=== PATIENT | female | born 1980 | race Two or more races ===

== ENCOUNTER 2017-11-19 15:50 | Emergency (ER) | payer MEDICAID ==
[~2017-11-19] VITALS: Ht 157.5 cm; Wt 8.0 kg
[~2017-11-19 15:50] MED LIST: ALBU8HFA PO; BUPR150T6 PO; CYCL-1 PO; DIPH25TA89 PO; NO HOME MEDS; OMEP20TA23 PO; PRED20TA PO; TOP25T PO
[2017-11-19 15:52] VITALS: BP 126/96
[2017-11-19] MEDS ORDERED: mag hydrox/Alum hydrox/simeth 30ml oral suspension PO ONE (15:55)
== END 2017-11-19 16:59 | disposition home or self-care (01) ==
LOC: ER 15:51
DX: T59.91XA Toxic effect of unspecified gases, fumes and vapors, accidental (unintentional), initial encounter (principal); J45.909 Unspecified asthma, uncomplicated; K21.9 Gastro-esophageal reflux disease without esophagitis; Z90.49 Acquired absence of other specified parts of digestive tract; Z87.891 Personal history of nicotine dependence; Z88.5 Allergy status to narcotic agent; Z88.8 Allergy status to other drugs, medicaments and biological substances; Z79.899 Other long term (current) drug therapy; Y92.89 Other specified places as the place of occurrence of the external cause
CPT/HCPCS: 99283

== ENCOUNTER 2021-12-28 12:16 | Emergency (ER) | payer MEDICARE, MEDICAID ==
[~2021-12-28] VITALS: Ht 157.5 cm; Wt 86.4 kg
[~2021-12-28 12:16] MED LIST changes: +BUPR150T22 PO; -BUPR150T6 PO
[2021-12-28 12:17] VITALS: BP 124/79
[2021-12-28] MEDS ORDERED: ibuprofen tablet 400 MG TABLET PO ONE (14:45)
== END 2021-12-28 15:01 | disposition left against medical advice (07) ==
LOC: ER 12:16
DX: L03.012 Cellulitis of left finger (principal); R19.7 Diarrhea, unspecified; J45.909 Unspecified asthma, uncomplicated; K21.9 Gastro-esophageal reflux disease without esophagitis; Z90.49 Acquired absence of other specified parts of digestive tract; Z98.51 Tubal ligation status; Z72.89 Other problems related to lifestyle; Z88.6 Allergy status to analgesic agent; Z88.8 Allergy status to other drugs, medicaments and biological substances; Z79.899 Other long term (current) drug therapy
CPT/HCPCS: 99281; 99282

== ENCOUNTER 2022-09-22 08:32 | Day surgery (SDC) | payer MEDICARE, MEDICAID ==
[2022-09-16 13:56] LABS: BASOPHILS % (AUTO) 0.3 % (0-1); EOSINOPHILS # (AUTO) 0.3 X10'3 (0-0.9); EOSINOPHILS % (AUTO) 4.4 % (0-6); LYMPHOCYTES # (AUTO) 2.4 X10'3 (1.1-4.8); LYMPHOCYTES % (AUTO) 31.9 % (21-51); MEAN CORPUSCULAR HEMOGLOBIN 32.4 PG (27.0-31.0); MEAN CORPUSCULAR HGB CONC 34.2 g/dL (33.0-36.5); MEAN CORPUSCULAR VOLUME 94.6 FL (78-98); MEAN PLATELET VOLUME 8.1 FL (7.4-10.4); MONOCYTES # (AUTO) 0.9 X10'3 (0-0.9); MONOCYTES % (AUTO) 12.4 % (2-12); NEUTROPHILS # (AUTO) 3.9 X10'3 (1.8-7.7); PRE OP PLATELET COUNT 215 X10'3 (140-440); RED BLOOD COUNT 4.33 X10'6 (4.20-5.60); RED CELL DISTRIBUTION WIDTH 13.4 % (11.5-14.5)
[2022-09-16 14:02] LABS: ALBUMIN 3.9 G/DL (3.4-5.0); ALBUMIN/GLOBULIN RATIO 1.3 (1.1-1.5); ALKALINE PHOSPHATASE 66 IU/L (46-116); BLOOD UREA NITROGEN 13 MG/DL (7-18); BUN/CREATININE RATIO 17.1 (6.6-38.0); CALCIUM 8.6 MG/DL (8.5-10.1); CHLORIDE 105 MMOL/L (99-107); CREATININE 0.76 MG/DL (0.40-0.90); PRE OP ALT 26 U/L (30-65); PRE OP ANION GAP 6 (8-16); PRE OP AST 20 U/L (10-37); PRE OP BILIRUB, TOTAL 0.1 MG/DL (0.0-1.0); PRE OP GLUCOSE 91 MG/DL (70-104); PRE OP SODIUM 140 MMOL/L (135-145); TOTAL CARBON DIOXIDE 28.7 MMOL/L (24-32); TOTAL PROTEIN 6.8 G/DL (6.4-8.2); eGFR 85 ML/MIN
[2022-09-16 14:57] LABS: CLARITY,URINE CLOUDY (Clear); COLOR,URINE YELLOW (Yellow); GLUCOSE, URINE NEGATIVE (Neg); KETONES,URINE NEGATIVE (Neg); LEUKOCYTE ESTERASE ,URINE NEGATIVE (Neg); NITRITES, URINE NEGATIVE (Neg); OCCULT BLOOD,URINE NEGATIVE (Neg); PROTEIN,URINE NEGATIVE (Neg); UROBILINOGEN,URINE 0.2 E.U/dL (0.2-1.0)
[2022-09-16 15:28] LABS: UA COLLECTION TYPE CLN CATCH MIDSTREAM
[2022-09-16 15:30] LABS: BACTERIA,URINE FEW /HPF (Neg); RBC,URINE 0-2 /HPF (0-2); WBC,URINE 0-4 /HPF (0-4)
[2022-09-16 15:31] LABS: MUCUS STRANDS MODERATE /LPF (Neg); SQUAMOUS EPITHELIAL CELL,UR MODERATE /LPF (FEW)
[2022-09-22] VITALS (9 sets, daily range): BP systolic 94–126; BP diastolic 58–89
[~2022-09-22] VITALS: Ht 157.5 cm; Wt 71.3 kg
[~2022-09-22 08:32] MED LIST changes: -ALBU8HFA PO; -BUPR150T22 PO; -CYCL-1 PO; -DIPH25TA89 PO; -OMEP20TA23 PO; -PRED20TA PO; -TOP25T PO; +ceFAZolin inj. 2,000 MG in dextrose 5%-water 100 ML IV ONE; +famotidine 20mg tablet PO ONE; +ringers solution, lacted 1,000 ML IV SCH
[2022-09-22] MEDS ORDERED: fentaNYL/PF 50MCG/1 ML 2ML syringe IV PRN ×2 (09:05)
[2022-09-22] MEDS ORDERED: ringers solution, lacted 1,000 ML IV SCH (09:05)
[2022-09-22] MEDS ORDERED: HYDROmorphone/PF 0.2 MG/ML SYRINGE IV PRN ×2 (09:05)
[2022-09-22] MEDS ORDERED: ondansetron/PF 4mg/2ml inj IV PRN (09:05)
[2022-09-22] MEDS ORDERED: BUPIVAcaine 0.5% inj/PF 30 ML ONE (11:57)
[2022-09-22] MEDS ORDERED: sevoflurane 250ml liquid IH ONE (12:35)
[2022-09-22] MEDS ORDERED: midazolam 1 mg/ML 2ml injection ONE (12:44)
[2022-09-22] MEDS ORDERED: morphine 10mg/ml inj. ONE (12:44)
[2022-09-22] MEDS ORDERED: acetaminophen 1,000mg/100ml IV 100 ML IV ONE (12:45)
[2022-09-22] MEDS ORDERED: dexamethasone sod phosphate 4mg/ml inj. ONE (12:46)
[2022-09-22] MEDS ORDERED: LIDOcaine 1%/PF 5ML 10 MG/ML VIAL ONE (12:46)
[2022-09-22] MEDS ORDERED: propofol inj 20 ML IV ONE (12:46)
[2022-09-22] MEDS ORDERED: ketorolac trometh. 30mg/ml inj. ONE (12:46)
[2022-09-22] MEDS ORDERED: ondansetron/PF 4mg/2ml inj ONE (12:46)
[2022-09-22] MEDS ORDERED: BUPIVAcaine 0.5% inj/PF 30 ml vial IJ ONE (13:06)
[2022-09-22] MEDS ORDERED: fentaNYL/PF 50MCG/1 ML 2ML syringe ONE (13:07)
--- NOTE | 2022-09-22 13:35 | NUR ---
Received from OR via [facility], accompanied by Anesthesiologist DR HIGH and report given by Anesthesiolgist. PT PLACED ON BEDSIDE MONITOR, VSS. PT RECEIVING 8L O2 TO MASK AND TOLERATING WELL WITH O2 SAT >96%. PT IS GROGGY BUT NODS HEAD APPROPRIATELY TO QUESTIONS. PT HAS 20G PIV TO LEFT HAND WITH LR INFUSING ORDERED. PT HAS INCISION TO RT UPPER QUADRANT ABD WITH TEGADERM IN PLACE, SCANT DRAINAGE AND PIECE OF GAUZE PLACED. PT DENIES PAIN AT THIS TIME. WILL CONTINUE TO ASSESS
--- NOTE | 2022-09-22 15:18 | NUR ---
ABLE TO SAFELY AMBULATE AND TRANSFER SELF. IV TAKEN OUT WITHOUT ANY COMPLICATIONS. ALL DISCHARGE INSTRUCTIONS COVERED WITH PATIENT AND ALL QUESTIONS ANSWERED. PATIENT TAKEN OUT VIA WHEELCHAIR TO PERSONAL VEHICLE WHERE FAMILY/FRIEND DROVE PATIENT HOME.
== END 2022-09-22 15:06 | disposition home or self-care (01) ==
LOC: PAS 08:32
PROVIDERS: ATTEND Surgery
DX: D49.2 Neoplasm of unspecified behavior of bone, soft tissue, and skin (principal); K21.00 Gastro-esophageal reflux disease with esophagitis, without bleeding; J44.9 Chronic obstructive pulmonary disease, unspecified; G43.909 Migraine, unspecified, not intractable, without status migrainosus; F31.9 Bipolar disorder, unspecified; F17.200 Nicotine dependence, unspecified, uncomplicated; Z90.49 Acquired absence of other specified parts of digestive tract; Z98.51 Tubal ligation status; Z98.890 Other specified postprocedural states; Z88.5 Allergy status to narcotic agent; Z88.8 Allergy status to other drugs, medicaments and biological substances; Z91.041 Radiographic dye allergy status
CPT/HCPCS: 11403; 36415; 80053; 81001; 82948; 85025; J0131; J0690; J1100; J1885; J2250; J2274; J2405; J2704; J3010; J3490; J7030; J7060; J7120; S0020; Z7506; Z7512; A4618; A7000

== ENCOUNTER 2022-09-27 10:49 | Day surgery (SDC) | payer MEDICARE, MEDICAID ==
[~2022-09-27] VITALS: Ht 157.5 cm; Wt 69.2 kg
[2022-09-27] VITALS (9 sets, daily range): BP systolic 107–143; BP diastolic 45–77
[~2022-09-27 10:49] MED LIST changes: -ceFAZolin inj. 2,000 MG in dextrose 5%-water 100 ML IV ONE; -famotidine 20mg tablet PO ONE; -ringers solution, lacted 1,000 ML IV SCH
[2022-09-27] MEDS ORDERED: MAGN400C PO (11:20)
[2022-09-27] MEDS ORDERED: OMEP20TA23 PO (11:20)
[2022-09-27] MEDS ORDERED: VITAMIN B12 SL (11:20)
[2022-09-27] MEDS ORDERED: FISH1CAP15 PO (11:20)
[2022-09-27] MEDS ORDERED: SYN0.088T PO (11:20)
[2022-09-27] MEDS ORDERED: MELA10TA PO (11:20)
[2022-09-27] MEDS ORDERED: UBID300C3 PO (11:20)
[2022-09-27] MEDS ORDERED: ASPI-1071 PO (11:20)
[2022-09-27] MEDS ORDERED: LOVA10TA PO (11:20)
[2022-09-27] MEDS ORDERED: AMIO100T4 PO (11:20)
[2022-09-27] MEDS ORDERED: CARV25TA PO (11:20)
[2022-09-27] MEDS ORDERED: APIX5TAB3 PO (11:20)
[2022-09-27 11:38] LABS: BASOPHILS % (AUTO) 0.5 % (0-1); EOSINOPHILS # (AUTO) 0.3 X10'3 (0-0.9); EOSINOPHILS % (AUTO) 5.4 % (0-6); HEMATOCRIT 41.1 % (35.0-45.0); HEMOGLOBIN 14.1 g/dl (12.0-16.0); LYMPHOCYTES # (AUTO) 2.3 X10'3 (1.1-4.8); MEAN CORPUSCULAR HEMOGLOBIN 32.4 PG (27.0-31.0); MEAN CORPUSCULAR HGB CONC 34.4 g/dL (33.0-36.5); MEAN CORPUSCULAR VOLUME 94.3 FL (78-98); MEAN PLATELET VOLUME 7.8 FL (7.4-10.4); MONOCYTES # (AUTO) 0.5 X10'3 (0-0.9); MONOCYTES % (AUTO) 7.6 % (2-12); NEUTROPHILS # (AUTO) 3.1 X10'3 (1.8-7.7); NEUTROPHILS % (AUTO) 49.5 % (42-75); PLATELET COUNT 229 X10'3 (140-440); RED BLOOD COUNT 4.36 X10'6 (4.20-5.60); RED CELL DISTRIBUTION WIDTH 12.9 % (11.5-14.5); WHITE BLOOD COUNT 6.2 X10'3 (4.5-11.0)
[2022-09-27] MEDS ORDERED: LIDOcaine 1% 30ml preserv. free vial SQ STA (11:40)
[2022-09-27] MEDS ORDERED: NO HOME MEDS (11:50)
== END 2022-09-27 17:00 | disposition home or self-care (01) ==
LOC: SSTAY O 10:49
PROVIDERS: ATTEND Radiology Diagnostic Radiology
DX: K76.89 Other specified diseases of liver (principal); D17.5 Benign lipomatous neoplasm of intra-abdominal organs; F20.9 Schizophrenia, unspecified; Z88.5 Allergy status to narcotic agent; Z88.8 Allergy status to other drugs, medicaments and biological substances; Z90.49 Acquired absence of other specified parts of digestive tract; Z98.890 Other specified postprocedural states; Z79.899 Other long term (current) drug therapy
CPT/HCPCS: 36415; 47000; 76942; 85025; 85610; J3490; J7030

== ENCOUNTER 2024-03-29 10:11 | Outpatient (CLI) | payer MEDICARE, MEDICAID ==
[~2024-03-29] VITALS: Ht 157.5 cm; Wt 70.8 kg
[2024-03-29] MEDS: albuterol 2.5 MG/3 ML nebule NEB ONE (10:58)
[2024-03-29 11:02] VITALS: PULSE 82; RESP 18; O2SAT 98
[2024-03-29 11:36] VITALS: PULSE 89; RESP 18
== END 2024-03-29 23:59 | disposition home or self-care (01) ==
LOC: RT 10:11
PROVIDERS: ATTEND Family Medicine
DX: J45.40 Moderate persistent asthma, uncomplicated (principal)
CPT/HCPCS: 94060; 94729; 94760

== ENCOUNTER 2024-05-31 16:05 | Emergency (ER) | payer MEDICARE, MEDICAID ==
[~2024-05-31] VITALS: Ht 157.5 cm; Wt 65.9 kg
[2024-05-31 16:12] VITALS: BP 113/90; PULSE 138; RESP 20; TEMP 97.8; O2SAT 98
[2024-05-31] MEDS: acetaminophen 325mg tablet PO ONE (16:49)
== END 2024-05-31 17:07 | disposition home or self-care (01) ==
LOC: ER 16:06
DX: S59.911A Unspecified injury of right forearm, initial encounter (principal); J45.909 Unspecified asthma, uncomplicated; K21.9 Gastro-esophageal reflux disease without esophagitis; Z88.5 Allergy status to narcotic agent; Z88.8 Allergy status to other drugs, medicaments and biological substances; Z98.51 Tubal ligation status; Z90.49 Acquired absence of other specified parts of digestive tract; V89.2XXA Person injured in unspecified motor-vehicle accident, traffic, initial encounter; Y93.89 Activity, other specified; Y92.89 Other specified places as the place of occurrence of the external cause; Y99.8 Other external cause status
CPT/HCPCS: 73090; 99283; A4565